=== PATIENT | male | born 1960 | race Caucasian/White ===

== ENCOUNTER 2019-01-02 17:14 | Observation (INO) | payer OTHER ==
[~2019-01-02] VITALS: Ht 177.8 cm; Wt 115.9 kg
--- NOTE | ~2019-01-02 | HEMODYNAMI ---
PATIENT:KATRINA ANGUIANO MEDICAL RECORD: [id number] : 60 LOCATION:[facility] D.2126 ADMISSION DATE: 01/02/19 Generatedon:01/03/20199:33 Patient name: KATRINA ANGUIANO Patient #: [id number] : 1960 Date of study: 01/03/2019 Page: Of Hemodynamic Procedure Report Patient Data Patient Demographics Procedure consent was obtained First Name: KATRINA Gender: Male Last Name: SILVIO : 1960 Patient #: [id number] Age: 58 year(s) Race: SSN: [id number] Additional ID: [id number] Contact details [address]: [address] [place] [address] rd State: [place] City: [place] Zip code: [address] Past Medical History Allergies: No known allergies Admission Admission Data Admission Date: 01/02/2019 Admission Time: 18:52 Arrival Date: 01/03/2019 Arrival Time: 0:00 Admit Source: Emergency Insurance Payor: Private department health insurance Room #: D.2126 [facility] #: [id number] Height (in.): 69.69 BSA: 2.3 (m2) Height (cm.): 177 BMI: 36.71 (kg/m2) Weight (lbs.): 253.53 Weight (kg.): 115 Lab Results Lab Result Date: 01/03/2019 Lab Result Time: 4:35 Biochemistry Name Units Result Min Max BUN mg/dl 15 --(--*-)-- 7 18 Creatinine mg/dl 1 --(--*-)-- 0.6 1.3 CBC Name Units Result Min Max Hematocrit % 39.7 -*(----)-- 42 54 Hemoglobin g/dl 13.6 --(*---)-- 13.5 17.5 Procedure Procedure Types Cath Procedure Diagnostic Procedure [facility] w/Coronaries Aortic Root Angiography Sedation Charges Moderate Sedation up to 15 minutes Peripheral Cath Diagnostic Procedure Abd/Extremity Aortagram Procedure Description Procedure Date Procedure Date: 01/03/2019 Procedure Start Time: 9:15 Procedure End Time: 9:32 Procedure Staff Name Function Shiraz London MD Performing Physician Jeremiah Carbajal RT Monitor Estella Kasie RT Scrub Josue Millan RN Nurse Dewayne العلي RT Regional Operations Manager Indication Q-waves on ECG Procedure Data Cath Procedure Fluoroscopy Diagnostic fluoroscopy Total fluoroscopy Time: 3.9 time: 3.9 min min Diagnostic fluoroscopy Total fluoroscopy dose: 876 dose: 876 mGy mGy Contrast Material Contrast Material Type Amount (ml) Isovue 300 89 Entry Location Entry Primary Successful Side Size Upsize Upsize Entry Closure [place]ton ccessful Closure Location (Fr) 1 (Fr) 2 (Fr) Remarks Device Remarks Radial Right 6 Fr Mechanical artery Short Compression Estimated blood loss: 5 ml Diagnostic catheters Device Type Used For End Catheter Placement DIAGNOSTIC Cb 110cm Procedure 5Fr catheter ([id number]) DIAGNOSTIC Pigtail 5Fr Procedure catheter ([id number]) Procedure Complications No complications Procedure Medications Medication Administration Route Dosage Oxygen etCO2 Nasal cannula 2 l/min Lidocaine 2% added to field 20 Heparin Flush Bag added to field 2 bags (1000units/500ml NS) 0.9% NaCl I.V. 100 ml/hr Radial Cocktail I.A. 1 syringe (Verapamil 2mg/Nitro 400mcg/Heparin 1500units) Versed I.V. 2 mg Fentanyl I.V. 100 mcg Versed I.V. 1 mg Hemodynamics Rest BSA: 2.3 (m2) HGB: 13.6 (g/dl) O2 Consumption: Estimated: 298.48 (ml/min) O2 Con sumption indexed: Estimated:129.77 (ml/min/m) Heart Rate: 101 (bpm) Pressure Samples Time Site Value (mmHg) Purpose Heart Use Rate(bpm) 9:18 LV 139/1,19 Snapshot 85 Gradients Valve Time Site Site Mean SEP/DFP Peak To Heart Use 1 2 (mmHg) (sec/min) Peak Rate (mmHg) (bpm) Aortic 9:19 LV AO 86 Snapshots Pre Cath Intra NCS Post Cath Vital Signs Time Heart Resp SPO2 etCO2 NIBP (mmHg) Rhythm Pain Sedation Rate (ipm) (%) (mmHg) Status Level (bpm) 8:58:54 87 13 96 0 150/103(125) NSR 0 (11) 10(A) , No pain 9:03:03 81 13 95 45.7 138/95(111) NSR 0 (11) 10(A) , No pain 9:07:11 81 11 93 35.2 135/88(103) NSR 0 (11) 10(A) , No pain 9:11:19 82 13 92 37.4 138/85(106) NSR 0 (11) 10(A) , No pain 9:15:27 77 11 94 23.2 134/85(110) NSR 0 (11) 10(A) , No pain 9:19:39 84 11 92 12.7 114/72(107) NSR 0 (11) 10(A) , No pain 9:23:42 83 11 93 11.2 115/74(91) NSR 0 (11) 10(A) , No pain 9:27:46 85 11 95 38.2 128/78(97) NSR 0 (11) 10(A) , No pain 9:31:52 74 11 93 22.4 119/82(97) NSR 0 (11) 10(A) , No pain Medications Time Medication Route Dose Verified Delivered Reason Notes Effectiveness by by 9:03:58 Oxygen etCO2 2 l/min Shiraz Buffie used for Nasal Surya Millan RN procedure cannula 9:04:06 Lidocaine 2% added 20ml Shiraz Shiraz for local to vial Surya London MD anesthetic field 9:04:12 Heparin Flush added 2 bags Shiraz Shiraz used for Bag to Surya London MD procedure (1000units/500ml field NS) 9:04:24 0.9% NaCl I.V. 100 Shiraz Buffie Per ml/hr Surya Millan RN physician 9:08:49 Versed I.V. 2 mg Shiraz Buffie for sedation Surya Millan RN 9:08:56 Fentanyl I.V. 100 mcg Shiraz Buffie for sedation Surya Millan RN 9:17:16 Radial Cocktail I.A. 1 Shiraz Shiraz for (Verapamil syringe Surya London MD vasodilation 2mg/Nitro 400mcg/Heparin 1500units) 9:17:23 Versed I.V. 1 mg Shiraz Buffie for sedation Surya Millan RN Procedure Log Time Note 8:15:43 Dewayne العلي RT(R) (CV) sent for patient. Start room use. 8:36:35 Informed consent obtained and on chart 8:43:00 Insurance Payor : Private health insurance 8:43:25 Arrival Date: 01/03/2019 12:00:00 AM 8:43:36 Patient Weight : 253.53 lbs 8:43:39 Patient Height : 69.69 inches 8:44:58 Lab Result : Hematocrit 39.7 % 8:44:58 Lab Result : Hemoglobin 13.6 g/dl 8:44:58 Lab Result : BUN 15 mg/dl 8:44:58 Lab Result : Creatinine 1 mg/dl 8:46:58 Admit Source: Emergency department 8:47:19 ACC Patient presents with Unstable Angina CCS Anginal Class 4--Inability to carry out any physical activity w/o angina. Angina may occur at rest. 8:49:41 Procedure Status Urgent Heart Cath (IP). 8:49:49 Time tracking: Regular hours (M-F 7:00 - 5:00) 8:49:53 Plan of Care:Hemodynamics will remain stable., Cardiac rhythm will remain stable., Comfort level will be maintained., Respiratory function will remain adequate., Patient/ family verbilizes understanding of procedure., Procedure tolerated without complication., Recovers from procedure without complications.. 8:50:14 H&P Date Dictated: 01/02/2019 Within 30 days and on chart.. 8:50:25 Diagnostic Cath Status : Urgent 8:51:02 Indication : Q-waves on ECG 8:53:27 Patient received from PCU to CCL 1 Alert and oriented. Tansferred to table in Supine position. 8:53:33 Warm blankets applied, and ramon hugger turned on for patient comfort. 8:53:33 Correct patient and procedure confirmed by team. 8:53:34 ECG and BP/O2 sat monitors applied to patient. 8:57:46 Vital chart was started 8:57:48 Baseline sample Acquired. 8:58:01 Rhythm: sinus tachycardia 8:58:12 Full Disclosure recording started 8:58:16 Pre-procedure instructions explained to patient. 8:58:17 Pre-op teaching completed and patient verbalized understanding. 8:58:26 Family in patients room. 8:58:49 Patient NPO since Midnight. 8:58:56 Patient allergic to No known allergies 8:59:08 Is the patient allergic to Iodine/contrast media? No. 8:59:15 Is patient on blood thinner?No 8:59:17 Patient diabetic? No. 8:59:21 ----Pre-sedation anethsthesia assessment.---- 8:59:23 Previous problem with sedation/anesthesia? No ? 8:59:26 Snore? Yes 8:59:37 Sleep apnea? Yes 8:59:39 Deviated septum? No 8:59:50 Opens mouth fully? Yes 8:59:52 Sticks out tongue? Yes 8:59:59 Airway obstruction? Yes ASTHMA 9:00:08 Dentures? No ? 9:00:21 Pre procedure: right dorsailis pedis pulse 3+ Increased pulse; moderate pressure to obliterate 9:01:44 IV patent on arrival in left antecubital with 0.9% NaCl at KVO. 9:01:50 Modified Kiko's test Ulnar < 7 seconds 9:02:47 Patient pain scale 0/10 NOT AT THIS TIME. 9:03:01 Lab results completed and on chart. 9:03:09 Right Radial & Right Groin area was prepped with chlora-prep and draped in sterile fashion 9:03:23 Alarms reviewed by R. N. 9:03:24 Sharps counted by scrub and verified by R.N. 9:03:53 2) 60-89 Mildly reduced kidney function, and other findings (as for stage 1) point to kidney disease. 9:03:58 Oxygen 2 l/min etCO2 Nasal cannula was administered by Josue Millan RN; used for procedure; 9:04:06 Lidocaine 2% 20ml vial added to field was administered by Shiraz London MD; for local anesthetic; 9:04:12 Heparin Flush Bag (1000units/500ml NS) 2 bags added to field was administered by Shiraz London MD; used for procedure; 9:04:24 0.9% NaCl 100 ml/hr I.V. was administered by Josue Millan RN; Per physician; 9:04:25 Maximum allowable contrast dose (3.7 X eGFR X 0.75)224 ml. 9:04:33 Use device set Radial Dx or PCI 9:04:34 ACIST Syringe (23760) opened to sterile field. 9:04:35 Medline Cath Pack ([id number]) opened to sterile field. 9:04:35 Bag Decanter () opened to sterile field. 9:04:36 ACIST Hand Control (49068) opened to sterile field. 9:04:37 ACIST Manifold (69666) opened to sterile field. 9:04:37 Tegaderm 4 x 4 (1626W) opened to sterile field. 9:04:38 MBrace Wrist Support ([id number]) opened to sterile field. 9:04:40 NEEDLE Cook 21G 4cm Radial ([id number]) opened to sterile field. 9:04:46 TR BAND Large ([id number]) opened to sterile field. 9:04:48 EMERALD Guide Wire (502-485) opened to sterile field. 9:04:49 SHEATH 6FR RAIN ([id number]) opened to sterile field. 9:06:10 Physician arrived 9:06:11 --------ALL STOP TIME OUT------ 9:06:12 Final Timeout: patient, procedure, and site verified with staff and physician. All members of the team are in agreement. 9:06:15 Right Radial & Right Groin site verified by team. 9:06:21 Fire Safety Assessment: A--An alcohol-based skin anteseptic being used preoperatively., C--Open oxygen or nitrous oxide is being used., D--An ESU, laser, or fiber-optic light is being used. 9:06:25 Physical assessment completed. ASA score P 2 - A patient with mild systemic disease as per Shiraz London MD. 9:06:31 Sedation plan: IV Moderate Sedation Medication:Versed, Fentanyl 9:08:49 Versed 2 mg I.V. was administered by Josue Millan RN; for sedation; 9:08:56 Fentanyl 100 mcg I.V. was administered by Josue Millan RN; for sedation; 9:10:23 Zero performed for pressure channel P1 9:15:41 Procedure started. 9:15:44 Local anesthetic to right radial artery with Lidocaine 2% by Shiraz London MD.INITIAL ACCESS ONLY 9:15:51 A 6 Fr Short sheath was inserted into the Right Radial artery 9:16:48 A DIAGNOSTIC Cb 110cm 5Fr catheter ([id number]) was advanced over the wire and used for Procedure. 9:17:16 Radial Cocktail (Verapamil 2mg/Nitro 400mcg/Heparin 1500units) 1 syringe I.A. was administered by Shiraz London MD; for vasodilation; 9:17:23 Versed 1 mg I.V. was administered by Josue Millan RN; for sedation; 9:18:33 LV gram done using JEAN BAPTISTE 9::35 Injector settings: Ml/sec: 5, Volume: 15, 9:18:38 LV hemodynamics recorded. 9:18:42 EF : 55 % 9:19:54 LCA angiography performed. 9:21:18 RCA angiography performed. 9::22 Catheter exchanged over wire. 9::35 A DIAGNOSTIC Pigtail 5Fr catheter ([id number]) was advanced over the wire and used for Procedure. 9:23:18 Abdominal Aortagram was performed. 9:25:22 Aortic Root visualized 9:26:10 TR BAND Large ([id number]) opened to sterile field. 9:26:14 Catheter removed. 9::21 Sheath removed intact; hemostasis achieved with Mechanical Compression to the Right Radial artery. 9::23 Procedure ended.(Physican Out) 9:27:21 Fluoroscopy time 03.90 minutes. 9:27:53 Fluoroscopy dose: 876 mGy 9:27:53 Flurop Dose total: 876 9:27:59 Dose Area Product 17803 mGy/cm. 9:28:03 Contrast amount:Isovue 300 89ml. 9:28:04 Maximum allowable dose exceeded? No. 9:28:05 Sharps counted by scrub and verified by R.N. 9:28:07 TR band inflated with 11cc of air. 9:28:08 Insertion/operative site no bleeding no hematoma. 9:28:13 Post right radial artery:stable, soft, clean and dry 9:28:14 Post Procedure Pulses reassessed and unchanged 9:28:17 Post-procedure physical assessment completed. ASA score P 2 - A patient with mild systemic disease as per Shiraz London MD. 9:28:19 Post procedure rhythm: unchanged. 9:28:29 Estimated blood loss: 5 ml 9:28:30 Post procedure instruction explained to patient.Patient verbalizes understanding. 9::31 Patient needs reinforcement of post procedure teaching. 9:31:37 Procedure type changed to Cath procedure, Diagnostic procedure, LHC, LHC w/Coronaries, Aortic Root Angiography, Sedation Charges, Moderate Sedation up to 15 minutes, Peripheral Cath Diagnostic Procedure, Abd/Extremity, Aortagram 9:32:19 Procedure and supply charges have been captured, reviewed, submitted and are correct. 9:32:21 Procedure Complication : No complications 9:32:23 Vital chart was stopped 9:32:23 See physician's report for complete and final results. 9:32:26 Report given to PCU. 9:32:28 Patient transfered to PCU with Stretcher. 9:32:32 Procedure ended. 9:32:32 Full Disclosure recording stopped 9:32:42 End room use (Document Last) Device Usage Item Name Manufacture Quantity Catalog Hospital Part Current Minima l Lot# / Number Charge Number Stock Stock Serial# Code ACIST Acist 1 55045 954167 945372 [id number] 20 Syringe Medical (33562) Systems Inc Medline Medline 1 [id number] 058449 10340 852216 5 Cath Pack ([id number]) Bag Microtek 1 528850 94378 703897 5 Decanter Medical Inc. () ACIST Hand Acist 1 96705 481191 571488 076170 5 Control Medical (86928) Systems Inc ACIST Acist 1 99325 872425 776620 130623 5 Manifold Medical (47864) Systems Inc Tegaderm 4 3M 1 1626W 789107 600879 383799 5 x 4 (1626W) MBrace Advanced 1 140-0250-00 010549 97150 173218 5 Wrist Vascular Support Dynamics ([id number]) NEEDLE Cook Cook Medical 1 K77753 582168 730553 321890 5 21G 4cm Radial (P83848) TR BAND Terumo 2 EDT10-BUR 329104 460537 968081 40 Large ([id number]) [facility] Cardinal 1 502-455 254550 035314 384063 5 Guide Wire Health (502-455) SHEATH 6FR Cardinal 1 6287074 489445 3330592 802493 5 [facility] (4863070) DIAGNOSTIC Terumo 1 40-5023 508297 590484 280517 5 Cb 110cm 5Fr catheter (463069) DIAGNOSTIC Cardinal 1 [id number] 463901 272519 227686 5 Pigtail 5Fr Health catheter ([id number]) Signature Audit [place] Stage Time Signature Unsigned Intra-Procedure 01/03/2019 Jeremiah Carbajal 9:33:32 AM RT(R) Signatures Performing Physician : Signature : Shiraz London MD Date : Time : Monitor : Jeremiah Carbajal RT Signature : Date : Time : Nurse : Josue Millan RN Signature : Date : Time : [facility] [address] [place] [address]
[2019-01-02 17:46] LABS: BASOPHILS 0.6 % (0-2); EOSINOPHILS 4.2 % (0-7); HEMATOCRIT 41.5 % (42.0-54.0); HEMOGLOBIN 14.7 g/dL (13.5-17.5); IMMATURE GRANULOCYTES 0.4 % (0-5); LYMPHOCYTES 34.4 % (15-50); MCHC 35.4 g/dL (31.0-37.0); MCV 87.6 fL (80.0-100.0); MEAN PLATELET VOLUME 9.5 fL (7.4-10.4); MONOCYTES 8.2 % (2-11); NEUTROPHILS 52.2 % (40-80); PLATELET COUNT 253 10x3/uL (130-400); RBC 4.74 10x6/uL (4.20-6.10); RDW 13.5 % (11.5-14.5); WBC 8.2 10x3/uL (4.8-10.8)
[2019-01-02 17:55] LABS: INR 0.98 (0.85-1.17); PROTIME 12.5 SECONDS (11.6-15.0)
[2019-01-02 18:00] VITALS: BP 125/83
[2019-01-02 18:01] LABS: ALBUMIN 3.8 g/dL (3.4-5.0); ALKALINE PHOSPHATASE 50 U/L (46-116); ALT (SGPT) 27 U/L (10-68); CALC OSMOLALITY 282 mosm/kg (275-300); CALCIUM 9.3 mg/dL (8.5-10.1); CARBON DIOXIDE 25.4 mmol/L (21.0-32.0); CHLORIDE - SERUM 106 mmol/L (98-107); CREATININE - SERUM 1.2 mg/dL (0.6-1.3); GLUCOSE 101 mg/dL (74-106); PROTEIN - SERUM 7.1 g/dL (6.4-8.2); SODIUM 141 mmol/L (136-145); UREA NITROGEN 18 mg/dL (7-18); eGFR NON AFRICAN AMERICAN 66 mL/min (90-120)
[2019-01-02 18:12] LABS: CKMB 0.8 U/L (0.0-3.6); CREATINE KINASE 100 UL (21-232); MAGNESIUM - SERUM 1.9 mg/dL (1.8-2.4); TROPONIN-I < 0.017 ng/mL (0.000-0.060)
[2019-01-02 18:30] VITALS: BP 129/75
--- NOTE | 2019-01-02 19:45 | NUR ---
FLOOR CALLED TO INFORM THIS NURSE OF ASSIGNED ROOM NOT CLEAN AT THIS TIME.
[2019-01-02] MEDS ORDERED: XALATAN 0.0052.5 ML EACH EYE (21:00)
--- NOTE | 2019-01-02 21:10 | NUR ---
PT ARRIVED TO FLOOR VIA WHEELCHAIR ALERT AND ORIENTED X4. PT RR EVEN AND UNLABORED. TELEMETRY PLACED ON PT. DINAH SINGH IN ROOM WITH PT. NO S/S OF DISTRESS AT THIS TIME. PT DENIES PAIN OR ANY OTHER NEEDS AT THIS TIME. AT BEDSIDE. BED LOW CALL LIGHT WITHIN REACH. WILL CONTINUE TO MOMITOR.
[2019-01-02 23:22] LABS: CKMB 0.8 U/L (0.0-3.6); CREATINE KINASE 86 UL (21-232)
[2019-01-02 23:26] LABS: TROPONIN-I < 0.017 ng/mL (0.000-0.060)
[2019-01-03] VITALS: BP 108/75
[2019-01-03 04:11] VITALS: BP 108/75; Ht 177.8 cm; Wt 115.9 kg
[2019-01-03 04:30] VITALS: BP 134/82
[2019-01-03 04:48] LABS: BASOPHILS 0.6 % (0-2); EOSINOPHILS 4.6 % (0-7); HEMATOCRIT 39.7 % (42.0-54.0); HEMOGLOBIN 13.6 g/dL (13.5-17.5); IMMATURE GRANULOCYTES 0.2 % (0-5); LYMPHOCYTES 28.2 % (15-50); MCH 30.6 pg (26.0-34.0); MCHC 34.3 g/dL (31.0-37.0); MCV 89.2 fL (80.0-100.0); MEAN PLATELET VOLUME 9.4 fL (7.4-10.4); MONOCYTES 8.8 % (2-11); NEUTROPHILS 57.6 % (40-80); PLATELET COUNT 223 10x3/uL (130-400); RBC 4.45 10x6/uL (4.20-6.10); RDW 13.6 % (11.5-14.5); WBC 8.4 10x3/uL (4.8-10.8)
[2019-01-03 05:13] LABS: CALC OSMOLALITY 279 mosm/kg (275-300); CALCIUM 8.7 mg/dL (8.5-10.1); CARBON DIOXIDE 26.9 mmol/L (21.0-32.0); CHLORIDE - SERUM 106 mmol/L (98-107); CKMB 0.5 U/L (0.0-3.6); CREATINE KINASE 75 UL (21-232); GLUCOSE 99 mg/dL (74-106); PHOSPHOROUS 3.8 mg/dL (2.5-4.9); POTASSIUM - SERUM 4.1 mmol/L (3.5-5.1); SODIUM 140 mmol/L (136-145); UREA NITROGEN 15 mg/dL (7-18); eGFR NON AFRICAN AMERICAN 81 mL/min (90-120)
[2019-01-03 05:16] LABS: TROPONIN-I < 0.017 ng/mL (0.000-0.060)
--- NOTE | 2019-01-03 07:30 | NUR ---
ASSESSMENT COMPLETED. ALERT AND ORIETED. DENIES ANY NEEDS. TELEMERTY SHOWS SB 58. SL TO LEFT AC. NPO FOR CATH TODAY
--- NOTE | 2019-01-03 08:40 | NUR ---
PRE OPED. TO INDUSTRIAL MAINTENANCE TECHNICIAN PER BED
[2019-01-03 09:04] VITALS: BP 113/75
--- NOTE | 2019-01-03 09:50 | NUR ---
BACK FROM CEO. V/S STABLE WITH TELEMERT SHOWING SR 62. TR BAND TO RIGHT WRIST. NO BLEEDING OR SWELLING. FINGRS WARM TO TOUCH
[2019-01-03] MEDS ORDERED: PROTONIX40 MG PO (11:14)
[2019-01-03 12:20] VITALS: BP 113/76
--- NOTE | 2019-01-03 14:56 | NUR ---
PT DISCHARGED. IV DCD WITH TIP INTACT. CATH SITE CLEAN AND DRY. TO PRIVATE CAR PER WHEELCHAIR.
--- NOTE | 2019-01-03 19:38 | MORECARE ---
CASE MANAGEMENT DISCHARGE SUMMARY PATIENT: KATRINA ANGUIANO UNIT: [id number] ADM DATE: 01/02/19 AGE: 58 : 60 SEX: M ROOM/BED: D.2126 AUTHOR: YADI FLOWERS PHYSICIAN: REFERRING PHYSICIAN: CATHERINE MORILLO MD DATE OF SERVICE: 01/03/19 Discharge Plan Patient Name: KATRINA ANGUIANO [facility] [facility] 1960 Planned Disposition: Home Anticipated Discharge Date: Discharge Date: 01/03/2019 Expected LOS: Initial Reviewer: [email or web address] Initial Review Date: 01/02/2019 Generated: 01/03/19 8:38 pm Patient Name: KATRINA ANGUIANO Page [id number] at 1938 All edits/amendments must be made on the electronic document DICTATION DATE: 01/03/191936 COMPOSING ROOM MACHINIST APPRENTICE: MADDISON 01/03/191936 RPT#: [id number] DC DATE:01/03/19 STATUS: DIS IN [facility] [address] [place] [address] END OF REPORT
== END 2019-01-03 15:00 | disposition home or self-care (01) ==
LOC: D.ER 17:14 → D.M2 18:52 → OBSVTIME 18:56 → D.M2 01-03 15:00
PROVIDERS: Emergency Medicine; ADMIT Internal Medicine Nephrology; ATTEND Internal Medicine Nephrology
DX: I20.0 Unstable angina (principal); R55 Syncope and collapse

== ENCOUNTER → 2020-10-12 08:16 | Outpatient (CLI) | payer OTHER ==
[2020-06-30 01:07] VITALS: BMI 37.3
[~2020-10-12 08:16] MED LIST: ASCORBIC ACID500 MG PO; AZITHROMYCIN500 MG PO; DECADRON4 MG PO; DULERA 100 MCG8.8 GM INH; LEVOFLOXACIN500 MG PO; LEXAPRO10 MG PO; MELATONIN 3 MG1 TAB PO; MUCINEX600 MG PO; OMNICEF300 MG PO; PROTONIX40 MG PO; TESSALON PERLE100 MG PO; VENTOLIN HFA [SP8 GM INH; VITAMIN D50000 UNI1 PO; XALATAN 0.0052.5 ML EACH EYE; ZINC-220220 MG PO
== END | disposition home or self-care (01) ==
LOC: D.RT 08:00
PROVIDERS: ATTEND Internal Medicine Pulmonary Disease
DX: Z87.01 Personal history of pneumonia (recurrent) (principal)